=== PATIENT | female | born 1995 ===

== ENCOUNTER 2018-07-15 13:35 | Emergency (ER) | payer OTHER ==
[2018-07-15 13:53] VITALS: BP 122/68
[2018-07-15] MEDS ORDERED: IBUPROFEN PO ONE (14:14)
[2018-07-15] MEDS ORDERED: ULTRAM PO ONE (14:14)
[2018-07-15 14:59] LABS: Bilirubin,Urine NEG (Negative); Blood,Urine SM (Negative); Color,Urine Yellow (Yellow); Mucus,Urine FEW /HPF; Urobilinogen,Urine < 2.0 mg/dL (<2.0); WBC,Urine < 1.0 /HPF (0.0-6.0)
[2018-07-15 15:04] LABS: HCG Qualitative,Urine Negative (Negative)
--- NOTE | 2018-07-15 15:17 | Emergency Department Report ---
ED Abdominal Pain HPI - General Chief Complaint: Abdominal Pain Stated Complaint: PELVIC AREA PAIN/LOWER BACK PAIN Time Seen by Provider: 07/15/18 14:09 Source: patient Mode of arrival: Ambulatory Limitations: No Limitations - History of Present Illness Initial Comments: Patient is a 23-year-old female who states that she's had 2-3 days of right lower abdominal pain. Patient states the pain radiates to her right flank. She denies having any nausea vomiting but did have one episode of diarrhea last night. Patient states there is no hematuria dysuria or urinary frequency. Patient denies fever cough cold or congestion. Patient states the pain is aching and 6 out of 10 in severity. Severity scale (0 -10): 2 - Related Data Allergies Allergy/AdvReac Type Severity Reaction Status Date / Time No Known Allergies Allergy Unverified 07/15/18 13:38 ED Review of Systems ROS: Stated complaint: PELVIC AREA PAIN/LOWER BACK PAIN Other details as noted in HPI Comment: All other systems reviewed and negative ED Past Medical Hx - Past Medical History Previous Medical History?: No - Surgical History Past Surgical History?: No - Social History Smoking Status: Current Every Day Smoker Substance Use Type: Alcohol, Marijuana ED Physical Exam - General Limitations: No Limitations General appearance: alert, in no apparent distress - Head Head exam: Present: atraumatic, normocephalic - Eye Eye exam: Present: normal appearance - ENT ENT exam: Present: mucous membranes moist - Neck Neck exam: Present: normal inspection - Respiratory Respiratory exam: Present: normal lung sounds bilaterally. Absent: respiratory distress, wheezes, rales, rhonchi - Cardiovascular Cardiovascular Exam: Present: regular rate, normal rhythm. Absent: systolic murmur, diastolic murmur, rubs, gallop - GI/Abdominal GI/Abdominal exam: Present: soft, tenderness (patient does have some tenderness to the right lower quadrant.), normal bowel sounds. Absent: distended, guarding, rebound, rigid - Extremities Exam Extremities exam: Present: normal inspection - Back Exam Back exam: Present: normal inspection. Absent: CVA tenderness (R) - Neurological Exam Neurological exam: Present: alert, oriented X3 - Psychiatric Psychiatric exam: Present: normal affect, normal mood - Skin Skin exam: Present: warm, dry, intact, normal color. Absent: rash ED Course Vital Signs 07/15/18 13:51 Temperature 97.1 F L Pulse Rate 87 Respiratory 16 Rate Blood Pressure 122/68 O2 Sat by Pulse 99 Oximetry ED Medical Decision Making - Lab Data Lab Results 07/15/18 Range/Units 13:40 Urine Color Yellow (Yellow) Urine Turbidity Clear (Clear) Urine pH 6.0 (5.0-7.0) Ur Specific [place] 1.023 (1.003-1.030) Urine Protein 30 mg/dl (Negative) mg/dL Urine Glucose (UA) Neg (Negative) mg/dL Urine Ketones Neg (Negative) mg/dL Urine Blood Sm (Negative) Urine Nitrite Neg (Negative) Urine Bilirubin Neg (Negative) Urine Urobilinogen < 2.0 (<2.0) mg/dL Ur Leukocyte Esterase Neg (Negative) Urine WBC (Auto) < 1.0 (0.0-6.0) /HPF Urine RBC (Auto) 3.0 (0.0-6.0) /HPF U Epithel Cells (Auto) 2.0 (0-13.0) /HPF Urine Mucus Few /HPF Urine HCG, Qual Negative (Negative) - Medical Decision Making After receiving pain meds patient stated that she felt much improved and she wanted to leave. With her urine being negative for infection or blood made the diagnosis of appendicitis higher on her differential. I was told patient I still want to do a CT scan to ensure that she did not have a surgical emergency and the patient states she will follow with her primary care physician. Patient has left AGAINST MEDICAL ADVICE. Critical care attestation.: If time is entered above; I have spent that time in minutes in the direct care of this critically ill patient, excluding procedure time. ED Disposition Clinical Impression: Abdominal pain Disposition: DC-07 LEFT AGAINST MED ADVICE Is pt being admited?: No Does the pt Need Aspirin: No Condition: Stable Instructions: Abdominal Pain (ED) Referrals: [facility] [Other] - 3-5 Days [facility] [Other] - 3-5 Days Forms: Work/School Release Form(ED)
== END 2018-07-15 15:16 | disposition left against medical advice (07) ==
LOC: ED 13:35
DX: R10.31 Right lower quadrant pain (principal); R19.7 Diarrhea, unspecified; F17.200 Nicotine dependence, unspecified, uncomplicated
CPT/HCPCS: 81001; 81025; 99283

== ENCOUNTER 2018-11-26 15:33 | Emergency (ER) | payer BC, OTHER ==
[2018-11-26 15:52] VITALS: BP 114/64
--- NOTE | 2018-11-26 15:52 | Emergency Department Report ---
Blank Doc - Documentation Documentation: This is a 23-year-old female that presents with pelvic pain and vaginal bleedi ng. Stated had a previous D and C for . This initial assessment/diagnostic orders/clinical plan/treatment(s) is/are subject to change based on patient's health status, clinical progression and re- assessment by fellow clinical providers in the ED. Further treatment and workup at subsequent clinical providers discretion. Patient/guardians urged not to elope from the ED as their condition may be serious if not clinically assessed and managed. Initial orders include: 1- Patient sent to [facility] for further evaluation and treatment 2- labs 3- UA 4- US pelvic/transvaginal
--- NOTE | 2018-11-26 17:06 | Ultrasound Report ---
Pelvic ultrasound complete INDICATION: Vaginal bleeding status post D and C FINDINGS: Transabdominal imaging is performed. Patient declined transvaginal imaging The uterus measures 8.4 cm in length. Endometrial stripe measures 17 mm. The right ovary is not visualized. The left ovary measures 2.3 cm. IMPRESSION: There is thickening of the endometrium. There is limited detail. This may simply represen t blood in the endometrial cavity. I cannot entirely exclude the possibility of retained products of gestation though I do not see significant vascularity in the thickened endometrium. The right ovary is not seen. The left ovary is unremarkable. No free fluid is seen. Signer Name: Karan Killian MD Signed: 11/26/2018 5:01 PM Workstation Name: [id number]
[2018-11-26 17:30] LABS: Basophils % (Auto) 0.3 % (0.0-1.8); Eosinophils # (Auto) 0.3 K/mm3 (0.0-0.4); Eosinophils % (Auto) 3.6 % (0.0-4.3); Hematocrit 40.3 % (30.3-42.9); Hemoglobin 13.7 gm/dl (10.1-14.3); Lymphocytes % (Auto) 25.8 % (13.4-35.0); Mean Corpuscular HGB Conc 34 % (30-34); Mean Corpuscular Volume 97 fl (79-97); Monocytes # (Auto) 0.4 K/mm3 (0.0-0.8); Monocytes % (Auto) 5.3 % (0.0-7.3); Platelet Count 235 K/mm3 (140-440); Red Blood Count 4.16 M/mm3 (3.65-5.03); Red Cell Distribution Width 12.8 % (13.2-15.2)
[2018-11-26] MEDS ORDERED: MORPHINE IV ONE (19:41)
[2018-11-26] MEDS ORDERED: NACL 0.9% 1000 ML 1,000 ML IV ONE (19:41)
[2018-11-26] MEDS ORDERED: ZOFRAN IV ONE (19:41)
[2018-11-26 20:35] LABS: Bacteria,Urine 2+ /HPF (Negative); Bilirubin,Urine NEG (Negative); Blood,Urine LG (Negative); Color,Urine Red (Yellow); Mucus,Urine FEW /HPF; Sperm,Urine FEW /HPF (NP); Urobilinogen,Urine < 2.0 mg/dL (<2.0)
[2018-11-26 20:51] LABS: Alanine Aminotransferase 23 units/L (7-56); Albumin 4.6 g/dL (3.9-5)
[2018-11-26 20:55] LABS: Bilirubin,Direct < 0.2 mg/dL (0-0.2)
[2018-11-26] MEDS ORDERED: ROCEPHIN/NS 1 GM/50 ML 1 GM/50 ML BAG IV ONE (21:15)
[2018-11-26] MEDS ORDERED: DECADRON IV ONE (22:00)
[2018-11-26] MEDS ORDERED: BENADRYL IV ONE (22:00)
[2018-11-26] MEDS ORDERED: LEVAQUIN PO ONE (22:01)
[2018-11-26] MEDS ORDERED: DECADRON ONE (22:02)
[2018-11-26] MEDS ORDERED: BENADRYL ONE (22:03)
[2018-11-26] MEDS ORDERED: DUONEB *Not for PRN Use IH ONE (22:12)
--- NOTE | 2018-11-26 23:38 | Emergency Department Report ---
ED Female HPI - General Chief complaint: Urogenital-Female Stated complaint: PELVIC PAIN () Time Seen by Provider: 11/26/18 15:50 Source: patient Mode of arrival: Ambulatory Limitations: No Limitations - History of Present Illness Initial comments: Patient is a A1 23-year-old female who is status post D&C procedure one week ago presents with the ED with complaint of acute onset persistent severe suprapubic pain with nausea and vaginal bleeding for the last 1 week. Patient states that at the time of the D&C procedure, she was 7 weeks gestation. Patient states that in the last 2 days the pain has worsened such that she is u nable to walk because of severe pain. Patient states that she has been taking ibuprofen with no relief. Patient denies fever, chills, vomiting, dizziness, diarrhea, vaginal discharge, dysuria, urinary frequency and urgency, headache, chest pain, shortness of breath or cough. MD Complaint: vaginal bleeding, pelvic pain, other (s/p D&C procedure 1 week ago) -: Sudden, week(s) (1) Location: suprapubic Radiation: non-radiating Severity: severe Severity scale (0 -10): 8 Quality: cramping, sharp, aching Consistency: constant Improves with: none Worsens with: urination Are you Now?: No (s/p D&C 1 week ago) Associated Symptoms: denies other symptoms, vaginal bleeding, abdominal pain, hematuria. denies: vaginal discharge, nausea/vomiting, fever/chills, headaches, dysuria, rash, seizure, shortness of breath, weakness - Related Data Sexually active: Yes : 1 Para: 0 A: 1 Previous Rx's Medication Instructions Recorded Last Taken Type ALBUTEROL Inhaler (OR & NICU) 1 puff IH Q6H PRN #1 inha 11/26/18 Unknown Rx [ProAir HFA Inhaler] Doxycycline Hyclate [Doxycycline 100 mg PO Q12HR #20 tab 11/26/18 Unknown Rx Hyclate TAB] Ondansetron [Zofran Odt] 4 mg PO Q6HR PRN #15 tab.rapdis 11/26/18 Unknown Rx Prednisone [predniSONE 10 mg 10 mg PO .TAPER #1 tab.ds.pk 11/26/18 Unknown Rx (6-Day Pack, 21 Tabs)] Sulfamethoxazole/Trimethoprim 1 each PO Q12H #20 tablet 11/26/18 Unknown Rx [Bactrim DS TAB] diphenhydrAMINE [Benadryl CAP] 25 mg PO Q6HR PRN #24 capsule 11/26/18 Unknown Rx raNITIdine HCl [Zantac] 150 mg PO Q12H #20 tablet 11/26/18 Unknown Rx traMADol [Ultram] 50 mg PO Q6HR PRN #15 tablet 11/26/18 Unknown Rx Allergies Allergy/AdvReac Type Severity Reaction Status Date / Time No Known Allergies Allergy Unverified 07/15/18 13:38 ED Review of Systems ROS: Stated complaint: PELVIC PAIN () Other details as noted in HPI Constitutional: denies: chills, fever Eyes: denies: eye pain, eye discharge, vision change ENT: denies: ear pain, throat pain Respiratory: denies: cough, shortness of breath, wheezing Cardiovascular: denies: chest pain, palpitations Endocrine: no symptoms reported Gastrointestinal: abdominal pain, nausea. denies: diarrhea Genitourinary: urgency, dysuria, hematuria, other (vaginal bleeding). denies: discharge Musculoskeletal: denies: back pain, joint swelling, arthralgia Skin: denies: rash, lesions Neurological: denies: headache, weakness, paresthesias Psychiatric: denies: anxiety, depression Hematological/Lymphatic: denies: easy bleeding, easy bruising ED Past Medical Hx - Past Medical History Previous Medical History?: No - Surgical History Past Surgical History?: No - Social History Smoking Status: Current Some Day Smoker Substance Use Type: Alcohol - Medications Home Medications: Home Medications Medication Instructions Recorded Confirmed Last Taken Type ALBUTEROL Inhaler (OR & NICU) 1 puff IH Q6H PRN #1 inha 11/26/18 Unknown Rx [ProAir HFA Inhaler] Doxycycline Hyclate [Doxycycline 100 mg PO Q12HR #20 tab 11/26/18 Unknown Rx Hyclate TAB] Ondansetron [Zofran Odt] 4 mg PO Q6HR PRN #15 tab.rapdis 11/26/18 Unknown Rx Prednisone [predniSONE 10 mg 10 mg PO .TAPER #1 tab.ds.pk 11/26/18 Unknown Rx (6-Day Pack, 21 Tabs)] Sulfamethoxazole/Trimethoprim 1 each PO Q12H #20 tablet 11/26/18 Unknown Rx [Bactrim DS TAB] diphenhydrAMINE [Benadryl CAP] 25 mg PO Q6HR PRN #24 capsule 11/26/18 Unknown Rx raNITIdine HCl [Zantac] 150 mg PO Q12H #20 tablet 11/26/18 Unknown Rx traMADol [Ultram] 50 mg PO Q6HR PRN #15 tablet 11/26/18 Unknown Rx ED Physical Exam - General Limitations: No Limitations General appearance: alert, in no apparent distress - Head Head exam: Present: atraumatic, normocephalic, normal inspection - Eye Eye exam: Present: normal appearance, PERRL, EOMI. Absent: scleral icterus, conjunctival injection, nystagmus Pupils: Present: normal accommodation - ENT ENT exam: Present: normal exam, normal orophraynx, mucous membranes moist, TM's normal bilaterally, normal external ear exam - Neck Neck exam: Present: normal inspection, full ROM - Respiratory Respiratory exam: Present: normal lung sounds bilaterally. Absent: respiratory distress, rales, rhonchi, chest wall tenderness, accessory muscle use, decreased breath sounds, prolonged expiratory - Cardiovascular Cardiovascular Exam: Present: regular rate, normal rhythm, normal heart sounds. Absent: systolic murmur, diastolic murmur, rubs, gallop - GI/Abdominal GI/Abdominal exam: Present: soft, tenderness (palpable suprapubic tenderness), guarding, normal bowel sounds - Rectal Rectal exam: Present: deferred - Bi-manual exam: Present: other (deferred, patient choice) - Extremities Exam Extremities exam: Present: normal inspection, full ROM, normal capillary refill - Back Exam Back exam: Present: normal inspection, full ROM. Absent: tenderness, CVA ten derness (R), CVA tenderness (L), muscle spasm, paraspinal tenderness - Neurological Exam Neurological exam: Present: alert, oriented X3, CN II-XII intact, normal gait, reflexes normal - Psychiatric Psychiatric exam: Present: normal affect, normal mood - Skin Skin exam: Present: warm, dry, intact, normal color. Absent: rash ED Course Vital Signs 11/26/18 11/26/18 15:50 22:13 Temperature 98.3 F Pulse Rate 65 Pulse Rate [ 80 Throughout] Respiratory 18 Rate Respiratory 18 Rate [ Throughout] Blood Pressure 114/64 O2 Sat by Pulse 99 Oximetry - Reevaluation(s) Reevaluation #1: 11/26/18 23:42 Patient is a 23-year-old female presented to the ED with acute severe pelvic pain with vaginal bleeding after a D&C procedure 1 week ago. In the ED, patient is alert and oriented 3 and is not in distress. Lab test results were reviewed and are unremarkable except for urinalysis which shows significant urinary tract infection. Patient was treated for pain in the ED and also given Rocephin 1 g IV 1 with normal saline 1 L IV bolus. On reevaluation, patient started having shortness of breath with wheezing after completing Rocephin 1 g IV. Patient was then treated for acute allergic reaction due to Rocephin with the Decadron 10 mg IV, Benadryl 25 mg IV and also given nebulizer treatment with racemic epinephrine nebulizer. Patient was then monitored in the ED for 3 hours. On reevaluation, patient wheezing and shortness of breath resolved, and patient is alert and oriented 3 and is not in distress. The pelvic ultrasound shows thic kening of the endometrium. There is limited detail. This may simply represent blood in the endometrial cavity. I cannot entirely exclude the possibility of retained products of gestation though I do not see significant vascularity in the thickened endometrium. The right ovary is not seen. The left ovary is unremarkable. No free fluid is seen. Patient was discharged home on pain medications, antibiotics for UTI and patient was advised to follow up with her [employer] physician or primary care physician in 5-7 days for reevaluation or return to the ED immediately if symptoms get worse. 11/26/18 23:46 11/26/18 23:47 ED Medical Decision Making - Lab Data Result diagrams: 11/26/18 17:01 - Radiology Data Radiology results: report reviewed, image reviewed Findings [facility] [address] [place] [address] Ultrasound Report Signed Patient: STEPHANIE MARTINEZ MR#: [id number] : 1995 Acct:[id number] Age/Sex: 23 / F ADM Date: 11/26/18 Loc: ED Attending Dr: Ordering Physician: VALERIANO NEVAREZ NP Date of Service: 11/26/18 Procedure(s): US pelvic complete Accession Number(s): [id number] cc: VALERIANO NEVAREZ NP Pelvic ultrasound complete INDICATION: Vaginal bleeding status post D and C FINDINGS: Transabdominal imaging is performed. Patient declined transvaginal imaging The uterus measures 8.4 cm in length. Endometrial stripe measures 17 mm. The right ovary is not visualized. The left ovary measures 2.3 cm. IMPRESSION: There is thickening of the endometrium. There is limited detail. This may simply represent blood in the endometrial cavity. I cannot entirely exclude the possibility of retained products of gestation though I do not see significant vascularity in the thickened endometrium. The right ovary is not seen. The left ovary is unremarkable. No free fluid is seen. Signer Name: Karan Killian MD Signed: 11/26/2018 5:01 PM Workstation Name: [id number] Transcribed By: OLEGARIO Dictated By: Karan Killian MD Electronically Authenticated By: Karan Killian MD Signed Date/Time: 11/26/18 1687 - Medical Decision Making Patient is a 23-year-old female presented to the ED with acute severe pelvic pain with vaginal bleeding after a D&C procedure 1 week ago. In the ED, patient is alert and oriented 3 and is not in distress. Lab test results were reviewed and are unremarkable except for urinalysis which shows significant urinary tract infection. Patient was treated for pain in the ED and also given Rocephin 1 g IV 1 with normal saline 1 L IV bolus. On reevaluation, patient started having shortness of breath with wheezing after completing Rocephin 1 g IV. Patient was then treated for acute allergic reaction due to Rocephin with the Decadron 10 mg IV, Benadryl 25 mg IV and also given nebulizer treatment with racemic epinephrine nebulizer. Patient was then monitored in the ED for 3 hours. On reevaluation, patient wheezing and shortness of breath resolved, and patient is alert and oriented 3 and is not in distress. The pelvic ultrasound shows thickening of the endometrium. There is limited detail. This may simply represent blood in the endometrial cavity. I cannot entirely exclude the possibility of retained products of gestation though I do not see significant vascularity in the thickened endometrium. The right ovary is not seen. The left ovary is unremarkable. No free fluid is seen. Patient was discharged home on pain medications, antibiotics for UTI and patient was advised to follow up with her [employer] physician or primary care physician in 5-7 days for reevaluation or return to the ED immediately if symptoms get worse - Differential Diagnosis acute UTI; Pelvic pain; incomplete ; dysmenorrhea Critical care attestation.: If time is entered above; I have spent that time in minutes in the direct care of this critically ill patient, excluding procedure time. ED Disposition Clinical Impression: Acute urinary tract infection Abdominal pain Qualifiers: Abdominal location: lower abdomen, unspecified Qualified Code(s): R10.30 - Lower abdominal pain, unspecified Disposition: TO HOME OR SELFCARE Is pt being admited?: No Does the pt Need Aspirin: No Condition: Stable Instructions: Abdominal Pain (ED), Urinary Tract Infection in Women (ED) Additional Instructions: Take medications with food, and plenty of fluids and follow up with your primary care physician in 7-10 days for reevaluation. Return to the ED immediately if symptoms get worse. Prescriptions: Sulfamethoxazole/Trimethoprim [Bactrim DS TAB] 1 each PO Q12H #20 tablet diphenhydrAMINE [Benadryl CAP] 25 mg PO Q6HR PRN #24 capsule PRN Reason: Itching Doxycycline Hyclate [Doxycycline Hyclate TAB] 100 mg PO Q12HR #20 tab Prednisone [predniSONE 10 mg (6-Day Pack, 21 Tabs)] 10 mg PO .TAPER #1 tab.ds.pk ALBUTEROL Inhaler (OR & NICU) [ProAir HFA Inhaler] 1 puff IH Q6H PRN #1 inha PRN Reason: Dyspnea traMADol [Ultram] 50 mg PO Q6HR PRN #15 tablet PRN Reason: Pain raNITIdine HCl [Zantac] 150 mg PO Q12H #20 tablet Ondansetron [Zofran Odt] 4 mg PO Q6HR PRN #15 tab.rapdis PRN Reason: Nausea Referrals: JOYCELYN RAGLAND MD [Primary Care Provider] - 3-5 Days Forms: Work/School Release Form(ED) Time of Disposition: 23:36 Print Language: LITHUANIAN
== END 2018-11-27 00:01 | disposition home or self-care (01) ==
LOC: ED 15:33
DX: N39.0 Urinary tract infection, site not specified (principal); F17.200 Nicotine dependence, unspecified, uncomplicated; R06.02 Shortness of breath; R06.2 Wheezing; Z79.899 Other long term (current) drug therapy
CPT/HCPCS: 36415; 76856; 80076; 81001; 84702; 85025; 87086; 94640; 96365; 96375; 99285; J0696; J1100; J1200; J2270; J2405; J7030; 94644